=== PATIENT | male | born 2000 | race Caucasian/White ===

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

== ENCOUNTER 2024-04-30 21:52 | Emergency (ER) | payer OTHER, SELFPAY ==
[2024-04-30 21:53] VITALS: BP 130/55; PULSE 83; RESP 18; TEMP 36.4; O2SAT 100
[2024-04-30 21:54] VITALS: BMI 23.1
--- NOTE | 2024-04-30 22:14 | CT_ITS ---
STUDY: CT ABDOMEN AND PELVIS WITHOUT CONTRAST REASON FOR EXAM: Male, 23 years old. flank pain RADIATION DOSAGE (If Supplied By Facility): CTDIvol = ( 6.13 ) mGy, DLP = ( 320.25 ) mGycm TECHNIQUE: Transaxial images were obtained from the dome of the diaphragm to the symphysis pubis without oral contrast, and without intravenous contrast. Sagittal and coronal images were reconstructed. Individualized dose optimization techniques were used for this CT. The protocol utilizes one or more of the following dose reduction techniques: automated exposure control, adjustment of mA and/or kV according to patient size,and/or use of iterative reconstruction technique. COMPARISON: None. FINDINGS: The visualized lung bases are unremarkable. The visualized portions of the heart are within normal limits. Normal liver. Normal gallbladder and extrahepatic biliary system. Normal spleen. Normal pancreas. Normal bilateral adrenal glands. Normal right kidney. Mild left hydronephrosis. 3 mm ureterolith near the ureterovesicular junction. Normal visualized stomach. Normal small intestine. Normal colon. The appendix is visualized and appears normal. Normal abdominal aorta. Normal inferior vena cava. Normal retroperitoneum. Normal urinary bladder. Normal abdominal wall. Normal osseous structures. CT/Abdomen/Pelvis without Cont IMPRESSION: Mild left hydronephrosis due to a 3 mm distal ureterolith Electronically Signed: Kingsley Reyes MD at 23:07 EDT ,
[2024-04-30] MEDS: Ondansetron 4 MG/2 ML Vial IV (22:21)
[2024-04-30] MEDS: 0.9% Normal Saline (1000mL) 1,000 ML 999 ML IV ×2 (22:21→23:42)
[2024-04-30] MEDS: Ketorolac 30 MG/ML Syringe IV (22:21)
[2024-04-30 22:26] LABS: Absolute Lymphocyte Count 2.03 X10^3/uL (0.83-4.51); Absolute Neutrophil Count 10.2 X10^3/uL (2.0-7.7); Basophil# 0.07 X10^3/uL; Basophil% 0.5 % (0-1); Eosinophil# 0.24 X10^3/uL; Eosinophils% 1.8 % (0-5); Hematocrit 44.2 % (40-54); Hemoglobin 15.8 g/dL (13.0-16.5); Lymphocyte # 2.03 X10^3/ul (0.83-4.51); Lymphocyte % 15.2 % (19-41); Mean Corp Hgb Conc 35.7 g/dL (32-36); Mean Corpuscular Hgb 30.7 pg (27.0-32.0); Mean Corpuscular Volume 85.8 fL (80-94); Mean Platelet Vol. 10.8 fl (6.2-12.0); Monocyte# 0.73 X10^3/uL; Monocyte% 5.5 % (0-10); NRBC Flagged by Analyzer 0 % (0-5); Neutrophil % 76.6 % (47-70); Platelet Count 228 K/mm3 (150-450); RBC Distribution Width SD 38.1 fl (35.1-43.9); Red Blood Count 5.15 M/mm3 (4.6-6.2); White Blood Count 13.3 K/mm3 (4.4-11.0)
--- NOTE | 2024-04-30 22:32 | EX.ED.DYSGE1 ---
HPI History of Present Illness Chief Complaint: Abd Pain Informant: patient and family Narrative Narrative: Patient is a 23-year-old male with no significant past medical history. 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 He states he awoke from bed with some left-sided abdominal pain and took some Motrin and then was able to go back to sleep. However this afternoon/evening when he awoke the pain was more intense leading to bouts of nausea. He states that there has been no vomiting diarrhea or dysuria. He does report he did not have a bowel movement today which is abnormal for him. He denies any past medical history of intestinal disorders such as ulcer colitis Crohn's disease or IBS. He states he took more [id number] medication without symptom improvement and secondary to this comes in for evaluation [facility] Medical History Hx of fracture of patella History of broken finger Home Medications ?Medication ?Instructions ?Recorded ?Last Taken ?Type cephalexin 500 mg capsule 500 mg PO TID 7 days #21 caps 05/01/24 Unknown Rx ketorolac 10 mg tablet 10 mg PO 4X/DAY PRN pain 5 days 05/01/24 Unknown Rx #20 tabs ondansetron 4 mg disintegrating 4 mg PO TID PRN nausea and 05/01/24 Unknown Rx tablet vomiting #21 tabs oxycodone-acetaminophen 5 mg-325 1 tab PO Q6H PRN pain 3 days #12 05/01/24 Unknown Rx mg tablet (Percocet) tabs tamsulosin 0.4 mg capsule (Flomax) 0.4 mg PO DAILY #14 caps 05/01/24 Unknown Rx Allergy/AdvReac Type Severity Reaction Status Date / Time No Known Allergies Allergy Verified 04/30/24 21:56 Surgical History (Updated 04/30/24 @ 22:02 by Italia Sommer) History of wisdom tooth extraction Social History Smoking Status: Never smoker what type of physical activity do you participate in: weight training frequency: 3-4 times per week duration: 30-45 minutes/day ROS ROS ED Constitutional Constitutional ED: Denies chills or fever(s) ENT ENT ED: Denies sore throat Cardiovascular Cardiovascular: Denies chest pain Respiratory/Chest Respiratory/Chest: Denies cough or dyspnea Gastrointestinal Gastrointestinal: Reports abdominal pain, constipation and nausea; Denies diarrhea or vomiting Genitourinary Genitourinary ED: Denies dysuria or hematuria Musculoskeletal Musculoskeletal: Reports back pain Integumentary Denies rash Neurologic Neurologic: Denies headache(s) Hematologic/Lymphatic Hematologic/Lymphatic: Denies easy bleeding or easy bruising EXAM Physical Exam Const Vital Signs: 04/30/24 21:53 04/30/24 23:52 05/01/24 01:00 Temperature 97.6 F L Temperature Source Temporal Pulse Rate 83 82 85 Respiratory Rate 18 16 16 Blood Pressure 130/55 H 126/59 H 127/70 H Blood Pressure Mean 80 81 89 Pulse Ox 100 99 98 Oxygen Delivery Method Room Air Room Air Room Air 05/01/24 01:40 Temperature 98.1 F Temperature Source Pulse Rate 94 Respiratory Rate 20 H Blood Pressure 125/78 H Blood Pressure Mean 93 Pulse Ox 97 Oxygen Delivery Method Positive well nourished and well developed General Appearance ED: well developed; Negative for pallor HEENT HEENT Narrative: Normocephalic atraumatic Mucous membranes are slightly dry and tacky No secondary findings in the posterior pharynx to suggest infection Eyes PERRL and EOMs intact bilaterally General Eye ED: Negative for scleral icterus Neck supple Resp normal respiratory effort and clear to auscultation bilaterally Cardio regular rate and regular rhythm Rate: other Other Details: Heart is regular rate and rhythm without murmurs rubs or gallop Radial and carotid pulses are equal and symmetric GI non-distended and no masses GI Narrative: Abdomen is soft and nondistended with hypoactive bowel sounds. Patient has pain along the left lateral abdomen diffusely without voluntary guarding or rigidity. No pulsatile mass or fluid wave Auscultation: hypoactive bowel sounds Palpation: soft Back/Spine Back/Spine Narrative: Positive left CVA pain noted Extremity normal to inspection Neuro oriented x3, CN's II-XII intact bilaterally and no sensory deficits noted Sensorium / Orientation: alert Motor Exam: strength 5/5 throughout Psych mental status grossly normal Skin no rashes or lesions noted and no wounds Skin Narrative: No overlying soft tissue changes to suggest trauma or infection General Skin Exam: Negative for jaundice or pallor MDM MDM MDM Narrative Medical decision making narrative: Patient presented to the ER with stable vitals but reported sudden onset of left-sided abdominal/flank pain and therefore differential diagnosis is for kidney stone versus UTI versus pyelonephritis versus diverticulitis. As his exam and history is most consistent with kidney stone basic labs were obtained along with a noncontrast CT scan. Labs revealed no signs of acute kidney injury and urine sample showed questionable infection versus contamination and therefore to be sent for culture. CT scan confirmed left-sided kidney stone. It is 3 mm in size. Based on the size the patient should be able to pass the stone and as he does not have signs of urosepsis or CLARITZA there is no need for admission. Moreover after receiving medication in the ER pain has reduced to an acceptable level of 3-4. Patient was placed on symptomatic medications for home and was advised to follow-up with urology if symptoms do not resolve as he may need stent placement. History & Record Review Discussion w/independent historian: Patient and Family Lab Data Attestation: I reviewed the patient's lab results. Labs: Laboratory Results - last 24 hr 04/30/24 05/01/24 22:00 00:38 WBC 13.3 H RBC 5.15 Hgb 15.8 Hct 44.2 MCV 85.8 MCH 30.7 MCHC 35.7 RDW Std Deviation 38.1 RDW Coeff of Araseli 12.0 Plt Count 228 MPV 10.8 Immature Gran % (Auto) 0.400 Neut % (Auto) 76.6 H Lymph % (Auto) 15.2 L [place] % (Auto) 5.5 Eos % (Auto) 1.8 Baso % (Auto) 0.5 Absolute Neuts (auto) 10.2 H Absolute Lymphs (auto) 2.03 Nucleated RBC % 0 Sodium 137 Potassium 3.2 L Chloride 105 Carbon Dioxide 22.0 Anion Gap 10 BUN 20 H Creatinine 1.36 H Estim Creat Clear Calc 87.22 Est GFR (MDRD) Af Amer 83 Est GFR (MDRD) Non-Af 69 BUN/Creatinine Ratio 14.7 Glucose 139 H Calcium 10.0 Total Bilirubin 0.60 Direct Bilirubin 0.18 AST 21 ALT 21 Alkaline Phosphatase 105 Total Protein 8.1 Albumin 4.5 Globulin 3.6 Lipase 25 Urine Color Yellow Urine Clarity Sl. Cloudy Urine pH 8.0 Ur Specific [place] 1.010 Urine Protein Negative Urine Glucose (UA) Normal Urine Ketones 15 H Urine Occult Blood 250 H Urine Nitrite Negative Urine Bilirubin Negative Urine Urobilinogen Normal Ur Leukocyte Esterase Negative Urine RBC 25-50 SEEN Urine WBC 5-10 SEEN Ur Squamous Epith Cells 5-10 SEEN Amorphous Sediment 4+ Urine Bacteria 4+ Urine Mucus 0 SEEN Radiography Diagnostic Testing: Clinical Impression(s) from Imaging Studies Abdomen/Pelvis CT 04/30/24 22:14 IMPRESSION: Mild left hydronephrosis due to a 3 mm distal ureterolith Electronically Signed: Kingsley Reyes MD at 23:07 EDT Reading Location ID and State: [facility] / [place] Tel , Service support , Discharge Plan Triage Chief Complaint: Abd Pain ED Provider: Emory Reid Dx/Rx/DC Orders Clinical Impression: Kidney stone on left side, Renal colic, Hydronephrosis Instructions: ED Kidney Stone with Pain Prescriptions: New ketorolac 10 mg tablet 10 mg PO 4X/DAY PRN (Reason: pain) 5 Days Qty: 20 0RF tamsulosin [Flomax] 0.4 mg capsule 0.4 mg PO DAILY Qty: 14 0RF ondansetron 4 mg tablet,disintegrating 4 mg PO TID PRN (Reason: nausea and vomiting) Qty: 21 0RF cephalexin 500 mg capsule 500 mg PO TID 7 Days Qty: 21 0RF oxycodone-acetaminophen [Percocet] 5-325 mg tablet 1 tab PO Q6H PRN (Reason: pain) 3 Days Qty: 12 0RF Stand Alone Forms: ED Work / School Excuse Primary Care Provider: Mary Cooley Referrals: Mino Loredo MD [Med Staff - Active Staff] - Mary Cooley MD [Primary Care Provider] - Activity Restrictions/Additional Instructions: Please follow-up with urology to discuss need for stent placement if symptoms persist. If your pain is not controlled with the prescribed medication or develop a fever over 100.4 please return for repeat evaluation Print Language: Lebanese Disposition Disposition: Home, Self Care Discharge Date/Time: 05/01/24 01:44
[2024-04-30 22:48] LABS: AST(SGOT) 21 U/L (15-37); Alanine Aminotransfer ALT/SGPT 21 U/L (16-61); Albumin, Serum 4.5 g/dL (3.2-5.0); Alkaline Phosphatase 105 U/L (45-117); Anion Gap 10 (5-15); BUN 20 mg/dL (7-18); BUN/Creat Ratio 14.7 RATIO (10-20); Bilirubin, Direct 0.18 mg/dL (0.00-0.30); Chloride 105 mmol/L (98-107); Creatinine, Serum 1.36 mg/dL (0.70-1.30); EST Glomerular Filtration Rate 69 mL/min (>60); Est Glom Filt Rate - Afr Amer 83 mL/min (>60); Estimated Creatinine Clearance 87.22 ml/min; Globulin 3.6 g/dL (2.2-4.2); Glucose 139 mg/dL (74-106); Lipase 25 U/L (13-75); Potassium 3.2 mmol/L (3.5-5.1); Protein, Total 8.1 g/dL (6.4-8.2); Sodium Level 137 mmol/L (136-145)
[2024-04-30] MEDS: DiphenhydrAMINE 50 MG/ML Syringe 25 MG IV (23:40)
[2024-04-30] MEDS: Morphine 4 MG/ML Syringe IV (23:42)
[2024-04-30] MEDS: proCHLORPERazine 10 MG/2 ML Vial IV (23:42)
[2024-04-30 23:52] VITALS: BP 126/59; PULSE 82; RESP 16; O2SAT 99
[2024-05-01 00:42] LABS: Mucous, Urine 0 SEEN /hpf (<or=2+)
[2024-05-01 00:43] LABS: Color, Urine Yellow (Yellow); Glucose, Dipstick Normal (Normal); Ketone-Dipstick 15 mg/dl (Negative); Leukocyte Esterase-Dipstick Negative /ul (Negative); Nitrite-Dipstick Negative (Negative); Occult Blood-Urine 250 /ul (Negative); Protein-Dipstick Negative (Negative); Urine Bilirubin Dipstick Negative (Negative); Urine Clarity Sl. Cloudy (Clear); Urine Urobilinogen Normal (Normal)
[2024-05-01 01:00] VITALS: BP 127/70; PULSE 85; RESP 16; O2SAT 98
[2024-05-01 01:04] LABS: Amorphous Sediment 4+; Bacteria 4+ /hpf (None Seen); Red Blood Cells-Urine 25-50 SEEN /hpf (0-5); Squamous Epithelial Cells - UA 5-10 SEEN /hpf (0-5); White Blood Cells 5-10 SEEN /hpf (0-5)
[2024-05-01] MEDS: oxyCODONE 5 MG Tablet 10 MG PO (01:38)
[2024-05-01 01:40] VITALS: BP 125/78; PULSE 94; RESP 20; TEMP 36.7; O2SAT 97
== END 2024-05-01 01:44 | disposition home or self-care (01) ==
PROVIDERS: Emergency Provider Emergency Medicine; PCP Pediatrics; Visit Provider Emergency Medicine
DX: N13.2 Hydronephrosis with renal and ureteral calculous obstruction (principal)
CPT/HCPCS: 74176; 80048; 80076; 81001; 83690; 85025; 87086; 96361; 96374; 96375; 99283; J7030; A4216; J2405

== ENCOUNTER → 2024-06-10 | Outpatient (CLI) | payer OTHER, SELFPAY ==
[2024-06-10 10:04] LABS: Anion Gap 4 (5-15); BUN 17 mg/dL (7-18); Calcium,Total 9.4 mg/dL (8.5-10.1); Chloride 105 mmol/L (98-107); Creatinine, Serum 1.31 mg/dL (0.70-1.30); EST Glomerular Filtration Rate 72 mL/min (>60); Est Glom Filt Rate - Afr Amer 87 mL/min (>60); Glucose 91 mg/dL (74-106); Potassium 3.7 mmol/L (3.5-5.1); Sodium Level 137 mmol/L (136-145)
== END | disposition home or self-care (01) ==
LOC: LAB 09:11
PROVIDERS: PCP Pediatrics; Referring Provider Urology; Visit Provider Urology
DX: N20.1 Calculus of ureter (principal)
CPT/HCPCS: 36415; 80048

== ENCOUNTER → 2024-06-21 | Outpatient (CLI) | payer OTHER, SELFPAY ==
--- NOTE | 2024-06-21 07:55 | CT_ITS ---
STUDY: CT ABDOMEN AND PELVIS WITHOUT CONTRAST REASON FOR EXAM: Male, 23 years old. CALCULUS OF URETER-LEFT RADIATION DOSAGE (If Supplied By Facility): CTDIvol = ( 6.14 ) mGy, DLP = ( 314.53 ) mGycm TECHNIQUE: Transaxial images were obtained from the dome of the diaphragm to the symphysis pubis without oral contrast, and without intravenous contrast. Sagittal and coronal images were reconstructed. Individualized dose optimization techniques were used for this CT. COMPARISON: Comparison is made with prior study dated April 30, 2024. FINDINGS: The visualized lung bases are unremarkable. The visualized portions of the heart are within normal limits. Normal liver. Normal gallbladder and extrahepatic biliary system. Normal spleen. Normal pancreas. Normal bilateral adrenal glands. Normal right kidney. Normal left kidney. The previously seen calculus at the left ureterovesical junction is not seen at this time. No significant hydronephrosis. Normal visualized stomach. Normal small intestine. Normal colon. The appendix is visualized and appears normal. Normal abdominal aorta. Normal inferior vena cava. Normal retroperitoneum. Normal urinary bladder. There is diffuse enlargement of the seminal vesicles bilaterally. Normal abdominal wall. Normal osseous structures. CT/Abdomen/Pelvis without Cont IMPRESSION: No ureteral obstruction is seen at this time. Diffuse enlargement of the seminal vesicles bilaterally. Electronically Signed: Ivan Funk MD at 9:10 EDT ,
== END | disposition home or self-care (01) ==
LOC: CT 07:49
PROVIDERS: PCP Pediatrics; Referring Provider Urology; Visit Provider Urology
DX: N20.1 Calculus of ureter (principal)
CPT/HCPCS: 74176

== ENCOUNTER 2024-09-20 20:12 | Emergency (ER) | payer OTHER, SELFPAY ==
[2024-09-20 20:14] VITALS: BP 113/84; PULSE 88; RESP 18; TEMP 36.6; O2SAT 98; BMI 22.1
--- NOTE | 2024-09-20 20:23 | EX.ED.GENINJ ---
HPI History of Present Illness Chief Complaint: Laceration Informant: patient Onset/Context/Timing Onset: Today and Hours (6) Mechanism/Context: Incised Quality of Pain: Sharp Location: Left chest Worsened by: Nothing Relieved by: Nothing Associated Symptoms Associated Symptoms: Negative for Parasthesias, Weakness, Loss of function, Inability to ambulate, Loss of consciousness or Amnesia Narrative Narrative: Patient presents with a laceration to his chest wall that occurred approximately 6 hours prior to arrival. Patient states he accidentally walked into a door latch. Patient denies any shortness of breath. Patient denies any fevers or chills. Patient describes the pain as sharp. Patient states nothing makes it better and nothing makes it worse. Patient denies any paresthesias or weakness. Patient is unsure of his last tetanus. Patient states the bleeding stopped after several minutes of pressure. PFSH PFSH Medical History Hx of fracture of patella History of broken finger Home Medications ?Medication ?Instructions ?Recorded ?Last Taken ?Type cephalexin 500 mg capsule 500 mg PO TID 7 days #21 caps 05/01/24 Unknown Rx ketorolac 10 mg tablet 10 mg PO 4X/DAY PRN pain 5 days 05/01/24 Unknown Rx #20 tabs ondansetron 4 mg disintegrating 4 mg PO TID PRN nausea and 05/01/24 Unknown Rx tablet vomiting #21 tabs oxycodone-acetaminophen 5 mg-325 1 tab PO Q6H PRN pain 3 days #12 05/01/24 Unknown Rx mg tablet (Percocet) tabs tamsulosin 0.4 mg capsule (Flomax) 0.4 mg PO DAILY #14 caps 05/01/24 Unknown Rx Allergy/AdvReac Type Severity Reaction Status Date / Time No Known Allergies Allergy Verified 09/20/24 20:16 Surgical History History of wisdom tooth extraction Social History Smoking Status: Never smoker what type of physical activity do you participate in: weight training frequency: 3-4 times per week duration: 30-45 minutes/day ROS ROS ED Constitutional Constitutional ED: Denies chills or fever(s) Eyes Eyes: Denies blurry vision or change in vision ENT ENT ED: Denies rhinorrhea or sore throat Cardiovascular Cardiovascular: Denies chest pain or palpitations Respiratory/Chest Respiratory/Chest: Denies cough or dyspnea Gastrointestinal Gastrointestinal: Denies nausea or vomiting Genitourinary Genitourinary ED: Denies dysuria or hematuria Musculoskeletal Musculoskeletal: Denies back pain or neck pain Integumentary Denies abscess or rash Neurologic Neurologic: Denies headache(s) or weakness Allergic/Immunologic Allergic/Immunologic ED: Denies mouth swelling or urticaria EXAM Physical Exam Const Vital Signs: 09/20/24 20:14 Temperature 97.9 F Temperature Source Oral Pulse Rate 88 Respiratory Rate 18 Blood Pressure 113/84 H Blood Pressure Mean 93 Pulse Ox 98 Oxygen Delivery Method Room Air Positive well nourished and well developed General Appearance ED: well developed and NAD HEENT atraumatic Neck full ROM Chest Wall Chest Narrative: There is a 1.5 cm irregular laceration over the left chest wall. There is mild gapping of the wound margins. There are no foreign bodies visualized. There is no active bleeding noted. There is no bony crepitance or step-off. Neuro oriented x3, CN's II-XII intact bilaterally, moves all extremities, no focal motor deficits and no sensory deficits noted Rojelio Coma Scale: document GCS findings Spontaneous Obeys Commands Oriented 15 Sensorium / Orientation: alert Motor Exam: strength 5/5 throughout Psych mental status grossly normal PROC Procedures Lacerations Left chest: Length: 1.5 cm Depth: Sub Q Shape: Stellate Prep: Sterile Conditions and Chlorhexadine Laceration repair: Irrigated, Lidocaine, Skin sutures and Wound explored Irrigated (ml): 60 Number of Sutures/Three Bridges: 3 Suture Information: Ethilon, Simple and 4-0 MDM MDM MDM Narrative Medical decision making narrative: The wound was cleaned and irrigated with copious amounts of normal saline. The wound was anesthetized with 1% plain lidocaine locally. The wound was closed with 3 simple interrupted #4-0 nylon sutures under sterile technique. Patient tolerated the procedure well. Bacitracin dressing was applied. Patient was instructed to follow-up with his primary care physician in 7 days for wound recheck and suture removal. Patient was instructed to keep the wound clean and dry. Patient was instructed to return if worse in any way. Patient understood and was agreeable with the plan. All questions were answered. Discharge Plan Triage Chief Complaint: Laceration ED Provider: Bruno Justin Dx/Rx/DC Orders Clinical Impression: Laceration of chest wall Instructions: ED Laceration, All Closures Prescriptions: No Action ketorolac 10 mg tablet 10 mg PO 4X/DAY PRN (Reason: pain) 5 Days Qty: 20 0RF tamsulosin [Flomax] 0.4 mg capsule 0.4 mg PO DAILY Qty: 14 0RF ondansetron 4 mg tablet,disintegrating 4 mg PO TID PRN (Reason: nausea and vomiting) Qty: 21 0RF cephalexin 500 mg capsule 500 mg PO TID 7 Days Qty: 21 0RF oxycodone-acetaminophen [Percocet] 5-325 mg tablet 1 tab PO Q6H PRN (Reason: pain) 3 Days Qty: 12 0RF Primary Care Provider: Care Physician,No Primary Referrals: NOT,DEFINED [Non-Staff] - 7 Days for suture removal Print Language: Icelandic Disposition Disposition: Home, Self Care
[2024-09-20] MEDS: Diphth,Pertuss(Acell),Tet Vac 0.5 ML Vial IM (20:48)
== END 2024-09-20 20:55 | disposition home or self-care (01) ==
PROVIDERS: Emergency Provider Emergency Medicine; Visit Provider Emergency Medicine
DX: S21.112A Laceration without foreign body of left front wall of thorax without penetration into thoracic cavity, initial encounter (principal); W22.09XA Striking against other stationary object, initial encounter
CPT/HCPCS: 12001; 90715; 99283